=== PATIENT | female | born 1980 | race Caucasian/White ===

== ENCOUNTER 2016-09-22 17:33 | Emergency (ER) | payer BC | END 2016-09-22 19:33 | disposition home or self-care (01) | LOC: ER 17:33 | DX: J20.9 Acute bronchitis, unspecified (principal); M54.9 Dorsalgia, unspecified; G43.909 Migraine, unspecified, not intractable, without status migrainosus; F41.9 Anxiety disorder, unspecified; F17.210 Nicotine dependence, cigarettes, uncomplicated | CPT/HCPCS: 36415; 96374; J1885 ==